=== PATIENT | female | born 1965 | race Caucasian/White ===

== ENCOUNTER 2018-07-08 22:22 | Inpatient (IN) | payer BC ==
[~2018-07-08] VITALS: Ht 172.7 cm; Wt 92.2 kg
--- NOTE | 2018-07-08 23:28 | ED.ADGEN ---
Past History Past Medical History History of left ear cholesteatoma-surgery Adult General Chief Complaint Chief Complaint ".. I ve got a headache.. sore throat.. "... fever and chills.." HPI HPI Patient is a 53 year old female who presents with above hx and complaints. Pt. did received flu vaccination this season. No hx of travel, ill contacts or immunosuppression. Pt. normally healthy. Patient does not normally developed migraine headaches. No history of trauma. Has follow up with Dr. Kothari in the past. Review of Systems Review of Systems Constitutional: Complaints of fever or chills [] Eyes: Denies change in visual acuity, redness, or eye pain [] HENT: Complaints sore throat [] Respiratory: Denies cough or shortness of breath [] Cardiovascular: No additional information not addressed in HPI [] GI: Denies abdominal pain, nausea and vomiting Musculoskeletal: Denies back pain or joint pain [] Integument: Denies rash or skin lesions [] Neurologic: Complains of intractable headache,. Denies focal weakness or sensory changes [] Endocrine: Denies polyuria or polydipsia [] All other systems were reviewed and found to be within normal limits, except as documented in this note. Family History Family History Noncontributory Current Medications Current Medications Current Medications Medications (Trade) Dose Ordered Sig/Estella Start Time Stop Time Status Last Admin Dose Admin Ceftriaxone Sodium 2 gm/ Sodium Chloride 100 ml @ 200 mls/hr 1X ONCE 07/09/18 06:00 07/09/18 06:30 DC Ceftriaxone Sodium (Rocephin) 2 gm STK-MED ONCE 07/09/18 04:32 07/09/18 04:33 DC Diphenhydramine HCl (Benadryl) 50 mg 1X ONCE 07/09/18 04:45 07/09/18 04:46 DC 07/09/18 04:45 50 MG Fentanyl Citrate (Fentanyl 2ml Vial) 75 mcg 1X ONCE 07/09/18 04:45 07/09/18 04:46 DC 07/09/18 04:39 75 MCG Hydrocodone Bitartrate/ Ibuprofen (Vicoprofen 7.5-200) 2 tab 1X ONCE 07/08/18 23:30 07/08/18 23:38 DC 07/08/18 23:36 2 TAB Lactated Ringer's 1,000 ml @ 1,000 mls/hr 1X ONCE 07/09/18 04:45 07/09/18 05:44 DC 07/09/18 04:39 1,000 MLS/HR Lidocaine/ Epinephrine (Xylocaine 2%-Epi 1:100,000) 20 ml 1X ONCE 07/09/18 03:45 07/09/18 03:47 DC 07/09/18 03:45 20 ML Morphine Sulfate (Morphine 10mg Syringe) 10 mg PRN QID PRN 07/09/18 04:45 Ondansetron HCl (Zofran) 4 mg PRN Q4HRS PRN 07/09/18 04:45 07/10/18 04:44 Prochlorperazine Edisylate (Compazine) 10 mg 1X ONCE 07/09/18 04:45 07/09/18 05:40 DC 07/09/18 04:45 10 MG Sodium Chloride 100 ml @ As Directed STK-MED ONCE 07/09/18 04:34 07/09/18 04:35 DC Vancomycin HCl 1 gm/Sodium Chloride 250 ml @ 250 mls/hr 1X ONCE 07/09/18 06:45 07/09/18 07:44 DC Allergies Allergies Allergies Coded Allergies Type Severity Reaction Last Updated Verified No Known Drug Allergies 07/08/18 No Physical Exam Physical Exam Constitutional: Moderately acute distress, non-toxic appearance. [] HENT: Normocephalic, atraumatic, abnormal left ear old surgery scars,, oropharynx moist, injected pharynx, no oral exudates, nose normal. [] Eyes: PERRLA, EOMI, conjunctiva normal, no discharge. [] Neck: Normal range of motion, no tenderness, , no stridor. [] Some guarding with flexion of neck. Cardiovascular:Heart rate regular rhythm, no murmur [] Lungs & Thorax: Bilateral breath sounds clear to auscultation [] Abdomen: Bowel sounds normal, soft, no tenderness, no masses, no pulsatile masses. [] Skin: Warm, dry, no erythema, no rash. [] Back: No tenderness, no CVA tenderness. [] Extremities: No tenderness, no cyanosis, no clubbing, ROM intact, no edema. [] Neurologic: Alert and oriented X 3, normal motor function, normal sensory function, no focal deficits noted. []DTRs +2 patella and brachial. [employer] Teacher equal. Patient is ambulatory Psychologic: Affect anxious, judgement normal, mood normal. [] Current Patient Data Vital Signs Vital Signs Date Time Temp Pulse Resp B/P (MAP) Pulse Ox O2 Delivery O2 Flow Rate FiO2 07/09/18 04:37 74 21 148/57 (87) 98 Nasal Cannula 2.0 07/08/18 22:30 98.3 Lab Results Laboratory Tests Test 07/08/18 23:40 07/09/18 00:55 07/09/18 04:15 Influenza Type A (Rapid) Negative (NEGATIVE) Influenza Type B (Rapid) Negative (NEGATIVE) Group A Streptococcus Rapid Negative (NEGATIVE) White Blood Count 12.8 x10^3/uL (4.0-11.0) H Red Blood Count 4.41 x10^6/uL (3.50-5.40) Hemoglobin 13.1 g/dL (12.0-15.5) Hematocrit 37.8 % (36.0-47.0) Mean Corpuscular Volume 86 fL (79-100) Mean Corpuscular Hemoglobin 30 pg (25-35) Mean Corpuscular Hemoglobin Concent 35 g/dL (31-37) Red Cell Distribution Width 13.9 % (11.5-14.5) Platelet Count 243 x10^3/uL (140-400) Neutrophils (%) (Auto) 90 % (31-73) H Lymphocytes (%) (Auto) 6 % (24-48) L Monocytes (%) (Auto) 4 % (0-9) Eosinophils (%) (Auto) 1 % (0-3) Basophils (%) (Auto) 0 % (0-3) Neutrophils # (Auto) 11.5 x10^3uL (1.8-7.7) H Lymphocytes # (Auto) 0.7 x10^3/uL (1.0-4.8) L Monocytes # (Auto) 0.4 x10^3/uL (0.0-1.1) Eosinophils # (Auto) 0.1 x10^3/uL (0.0-0.7) Basophils # (Auto) 0.0 x10^3/uL (0.0-0.2) Erythrocyte Sedimentation Rate 11 (0-25) Sodium Level 139 mmol/L (136-145) Potassium Level 3.9 mmol/L (3.5-5.1) Chloride Level 103 mmol/L (98-107) Carbon Dioxide Level 27 mmol/L (21-32) Anion Gap 9 (6-14) Blood Urea Nitrogen 12 mg/dL (7-20) Creatinine 0.9 mg/dL (0.6-1.0) Estimated GFR (Cockcroft-Gault) 65.5 Glucose Level 128 mg/dL (70-99) H Calcium Level 8.9 mg/dL (8.5-10.1) Total Bilirubin 0.3 mg/dL (0.2-1.0) Direct Bilirubin 0.1 mg/dL (0.0-0.2) Aspartate Amino Transferase (AST) 13 U/L (15-37) L Alanine Aminotransferase (ALT) 19 U/L (14-59) Alkaline Phosphatase 47 U/L (46-116) Total Protein 7.4 g/dL (6.4-8.2) Albumin 3.7 g/dL (3.4-5.0) CSF Volume 12.5 CSF Color Colorless CSF Clarity Cloudy CSF WBC 5600 CSF RBC 90 CSF Mononuclear WBCs % 3 % CSF Polynuclear WBCs (%) 97 % CSF Glucose 41 mg/dL (37-70) CSF Total Protein 173.9 mg/dL (15.0-45.0) H Microbiology 07/09/18 Gram Stain - Final, Complete Microbiology 07/09/18 Gram Stain - Final, Complete EKG EKG [] Radiology/Procedures Radiology/Procedures My interpretation CT of head shows no shift, mass, edema, bleed, or fracture. Does have some white matter disease changes. Does have findings of previous cholesteatoma surgery on left ear. Possible mastoiditis[] Course & Med Decision Making Course & Med Decision Making Pertinent Labs and Imaging studies reviewed. (See chart for details) Pt. not feeling better after two Vicoprofen. Strept and Flu were negative. Will order labs and CT of head. 0040 Hr.s Procedure: Spinal Tap- Risks and Benefits discussed. Customs Verifier. Lumbar L-4 prepped with Sterile drape, 3 cc lidocaine, and 23 g. needle with removal 4 tubes of CSF , that was cloudy. Pt. tolerated tap well. Opening pressure 35 with 2 ml pleural variation. Will start on antibiotic due to cloudy appearance. Place pt. on isolation. Discussed presentation, testing and tx. plan with Dr. Keene- [] Final Impression Final Impression 1. [] Head ache 2. Leukocytosis 12.8 3. Meningitis- CSF WBC 5,600, PM's Protein 173 Dragon Disclaimer Dragon Disclaimer This electronic medical record was generated, in whole or in part, using a voice recognition dictation system. Discharge Summary Visit Information Final Diagnosis Problems Medical Problems: (1) Headache Status: Acute Brief Hospital Course Allergies Allergies Coded Allergies Type Severity Reaction Last Updated Verified No Known Drug Allergies 07/08/18 No Vital Signs Vital Signs Date Time Temp Pulse Resp B/P (MAP) Pulse Ox O2 Delivery O2 Flow Rate FiO2 07/09/18 04:37 74 21 148/57 (87) 98 Nasal Cannula 2.0 07/08/18 22:30 98.3 Lab Results Laboratory Tests Test 07/08/18 23:40 07/09/18 00:55 07/09/18 04:15 Influenza Type A (Rapid) Negative (NEGATIVE) Influenza Type B (Rapid) Negative (NEGATIVE) Group A Streptococcus Rapid Negative (NEGATIVE) White Blood Count 12.8 x10^3/uL (4.0-11.0) Red Blood Count 4.41 x10^6/uL (3.50-5.40) Hemoglobin 13.1 g/dL (12.0-15.5) Hematocrit 37.8 % (36.0-47.0) Mean Corpuscular Volume 86 fL (79-100) Mean Corpuscular Hemoglobin 30 pg (25-35) Mean Corpuscular Hemoglobin Concent 35 g/dL (31-37) Red Cell Distribution Width 13.9 % (11.5-14.5) Platelet Count 243 x10^3/uL (140-400) Neutrophils (%) (Auto) 90 % (31-73) Lymphocytes (%) (Auto) 6 % (24-48) Monocytes (%) (Auto) 4 % (0-9) Eosinophils (%) (Auto) 1 % (0-3) Basophils (%) (Auto) 0 % (0-3) Neutrophils # (Auto) 11.5 x10^3uL (1.8-7.7) Lymphocytes # (Auto) 0.7 x10^3/uL (1.0-4.8) Monocytes # (Auto) 0.4 x10^3/uL (0.0-1.1) Eosinophils # (Auto) 0.1 x10^3/uL (0.0-0.7) Basophils # (Auto) 0.0 x10^3/uL (0.0-0.2) Erythrocyte Sedimentation Rate 11 (0-25) Sodium Level 139 mmol/L (136-145) Potassium Level 3.9 mmol/L (3.5-5.1) Chloride Level 103 mmol/L (98-107) Carbon Dioxide Level 27 mmol/L (21-32) Anion Gap 9 (6-14) Blood Urea Nitrogen 12 mg/dL (7-20) Creatinine 0.9 mg/dL (0.6-1.0) Estimated GFR (Cockcroft-Gault) 65.5 Glucose Level 128 mg/dL (70-99) Calcium Level 8.9 mg/dL (8.5-10.1) Total Bilirubin 0.3 mg/dL (0.2-1.0) Direct Bilirubin 0.1 mg/dL (0.0-0.2) Aspartate Amino Transf (AST/SGOT) 13 U/L (15-37) Alanine Aminotransferase (ALT/SGPT) 19 U/L (14-59) Alkaline Phosphatase 47 U/L (46-116) Total Protein 7.4 g/dL (6.4-8.2) Albumin 3.7 g/dL (3.4-5.0) CSF Volume 12.5 CSF Color Colorless CSF Clarity Cloudy CSF WBC 5600 CSF RBC 90 CSF Mononuclear WBCs % 3 % CSF Polynuclear WBCs (%) 97 % CSF Glucose 41 mg/dL (37-70) CSF Total Protein 173.9 mg/dL (15.0-45.0) Brief Hospital Course Ms. Villalba is a 53 old male who presented with headache and nasal congestion. Discharge Information Condition at Discharge: Improved Disposition/Orders: D/C to Home Dischare Medications Current Medications Hydrocodone Bitartrate/ Ibuprofen (Vicoprofen 7.5-200) 2 tab 1X ONCE PO Last administered on 07/08/18at 23:36; Admin Dose 2 TAB; Start 07/08/18 at 23:30; Stop 07/08/18 at 23:38; Status DC Lactated Ringer's 1,000 ml @ 1,000 mls/hr Q1H IV Last administered on at 01:08; Admin Dose 1,000 MLS/HR; Start 07/09/18 at 00:45; Stop 07/09/18 at 01:44; Status DC Ondansetron HCl (Zofran) 8 mg 1X ONCE IV Last administered on 07/09/18at 01:38 ; Admin Dose 8 MG; Start 07/09/18 at 01:45; Stop 07/09/18 at 01:48; Status DC Fentanyl Citrate (Fentanyl 2ml Vial) 75 mcg 1X ONCE IV Last administered on at 01:39; Admin Dose 75 MCG; Start 07/09/18 at 01:45; Stop 07/09/18 at 01: 48; Status DC Ondansetron HCl (Zofran) 8 mg 1X ONCE IV ; Start 07/09/18 at 01:45; Stop at 01:48; Status DC Fentanyl Citrate (Fentanyl 2ml Vial) 75 mcg 1X ONCE IV ; Start 07/09/18 at 01: 45; Stop 07/09/18 at 01:48; Status DC Fentanyl Citrate (Fentanyl 2ml Vial) 75 mcg 1X ONCE IV Last administered on at 03:45; Admin Dose 75 MCG; Start 07/09/18 at 03:45; Stop 07/09/18 at 03: 47; Status DC Lidocaine/ Epinephrine (Xylocaine 2%-Epi 1:100,000) 20 ml 1X ONCE IJ Last administered on 07/09/18at 03:45; Admin Dose 20 ML; Start 07/09/18 at 03:45; Stop 07/09/18 at 03:47; Status DC Ceftriaxone Sodium 2 gm/ Sodium Chloride 100 ml @ 200 mls/hr 1X ONCE IV Last administered on 07/09/18at 04:39; Admin Dose 200 MLS/HR; Start 07/09/18 at 04:45 ; Stop 07/09/18 at 05:14; Status DC Fentanyl Citrate (Fentanyl 2ml Vial) 75 mcg 1X ONCE IV Last administered on at 04:39; Admin Dose 75 MCG; Start 07/09/18 at 04:45; Stop 07/09/18 at 04: 46; Status DC Morphine Sulfate (Morphine 10mg Syringe) 10 mg 1X ONCE SQ ; Start 07/09/18 at 04:45; Stop 07/09/18 at 04:46; Status DC Diphenhydramine HCl (Benadryl) 50 mg 1X ONCE IVP Last administered on at 04:45; Admin Dose 50 MG; Start 07/09/18 at 04:45; Stop 07/09/18 at 04:46; Status DC Prochlorperazine Edisylate (Compazine) 10 mg 1X ONCE IM ; Start 07/09/18 at 04: 45; Stop 07/09/18 at 04:46; Status DC Lactated Ringer's 1,000 ml @ 1,000 mls/hr 1X ONCE IV Last administered on at 04:39; Admin Dose 1,000 MLS/HR; Start 07/09/18 at 04:45; Stop 07/09/18 at 05:44; Status DC Ceftriaxone Sodium (Rocephin) 2 gm STK-MED ONCE IV ; Start 07/09/18 at 04:32; Stop 07/09/18 at 04:33; Status DC Sodium Chloride 100 ml @ As Directed STK-MED ONCE .ROUTE ; Start 07/09/18 at 04 :34; Stop 07/09/18 at 04:35; Status DC Ondansetron HCl (Zofran) 4 mg PRN Q4HRS PRN IV NAUSEA/VOMITING; Start 07/09/18 at 04:45; Stop 07/10/18 at 04:44 Morphine Sulfate (Morphine 10mg Syringe) 10 mg PRN QID PRN SQ MARKED PAIN; Start 07/09/18 at 04:45 Ceftriaxone Sodium 2 gm/ Sodium Chloride 100 ml @ 200 mls/hr 1X ONCE IV ; Start 07/09/18 at 06:00; Stop 07/09/18 at 06:30; Status DC Prochlorperazine Edisylate (Compazine) 10 mg 1X ONCE IV Last administered on at 04:45; Admin Dose 10 MG; Start 07/09/18 at 04:45; Stop 07/09/18 at 05: 40; Status DC Vancomycin HCl 1 gm/Sodium Chloride 250 ml @ 250 mls/hr 1X ONCE IV ; Start at 06:45; Stop 07/09/18 at 07:44; Status DC Discharge Summary Visit Information Final Diagnosis Problems Medical Problems: (1) Headache Status: Acute Brief Hospital Course Allergies Allergies Coded Allergies Type Severity Reaction Last Updated Verified No Known Drug Allergies 07/08/18 No Vital Signs Vital Signs Date Time Temp Pulse Resp B/P (MAP) Pulse Ox O2 Delivery O2 Flow Rate FiO2 07/09/18 04:37 74 21 148/57 (87) 98 Nasal Cannula 2.0 07/08/18 22:30 98.3 Lab Results Laboratory Tests Test 07/08/18 23:40 07/09/18 00:55 07/09/18 04:15 Influenza Type A (Rapid) Negative (NEGATIVE) Influenza Type B (Rapid) Negative (NEGATIVE) Group A Streptococcus Rapid Negative (NEGATIVE) White Blood Count 12.8 x10^3/uL (4.0-11.0) Red Blood Count 4.41 x10^6/uL (3.50-5.40) Hemoglobin 13.1 g/dL (12.0-15.5) Hematocrit 37.8 % (36.0-47.0) Mean Corpuscular Volume 86 fL (79-100) Mean Corpuscular Hemoglobin 30 pg (25-35) Mean Corpuscular Hemoglobin Concent 35 g/dL (31-37) Red Cell Distribution Width 13.9 % (11.5-14.5) Platelet Count 243 x10^3/uL (140-400) Neutrophils (%) (Auto) 90 % (31-73) Lymphocytes (%) (Auto) 6 % (24-48) Monocytes (%) (Auto) 4 % (0-9) Eosinophils (%) (Auto) 1 % (0-3) Basophils (%) (Auto) 0 % (0-3) Neutrophils # (Auto) 11.5 x10^3uL (1.8-7.7) Lymphocytes # (Auto) 0.7 x10^3/uL (1.0-4.8) Monocytes # (Auto) 0.4 x10^3/uL (0.0-1.1) Eosinophils # (Auto) 0.1 x10^3/uL (0.0-0.7) Basophils # (Auto) 0.0 x10^3/uL (0.0-0.2) Erythrocyte Sedimentation Rate 11 (0-25) Sodium Level 139 mmol/L (136-145) Potassium Level 3.9 mmol/L (3.5-5.1) Chloride Level 103 mmol/L (98-107) Carbon Dioxide Level 27 mmol/L (21-32) Anion Gap 9 (6-14) Blood Urea Nitrogen 12 mg/dL (7-20) Creatinine 0.9 mg/dL (0.6-1.0) Estimated GFR (Cockcroft-Gault) 65.5 Glucose Level 128 mg/dL (70-99) Calcium Level 8.9 mg/dL (8.5-10.1) Total Bilirubin 0.3 mg/dL (0.2-1.0) Direct Bilirubin 0.1 mg/dL (0.0-0.2) Aspartate Amino Transf (AST/SGOT) 13 U/L (15-37) Alanine Aminotransferase (ALT/SGPT) 19 U/L (14-59) Alkaline Phosphatase 47 U/L (46-116) Total Protein 7.4 g/dL (6.4-8.2) Albumin 3.7 g/dL (3.4-5.0) CSF Volume 12.5 CSF Color Colorless CSF Clarity Cloudy CSF WBC 5600 CSF RBC 90 CSF Mononuclear WBCs % 3 % CSF Polynuclear WBCs (%) 97 % CSF Glucose 41 mg/dL (37-70) CSF Total Protein 173.9 mg/dL (15.0-45.0) Brief Hospital Course Ms. Villalba is a 53 old female who presented with meningitis. Admitted to Dr. Keene. Discharge Information Condition at Discharge: Improved Dischare Medications Current Medications Hydrocodone Bitartrate/ Ibuprofen (Vicoprofen 7.5-200) 2 tab 1X ONCE PO Last administered on 07/08/18at 23:36; Admin Dose 2 TAB; Start 07/08/18 at 23:30; Stop 07/08/18 at 23:38; Status DC Lactated Ringer's 1,000 ml @ 1,000 mls/hr Q1H IV Last administered on at 01:08; Admin Dose 1,000 MLS/HR; Start 07/09/18 at 00:45; Stop 07/09/18 at 01:44; Status DC Ondansetron HCl (Zofran) 8 mg 1X ONCE IV Last administered on 07/09/18at 01:38 ; Admin Dose 8 MG; Start 07/09/18 at 01:45; Stop 07/09/18 at 01:48; Status DC Fentanyl Citrate (Fentanyl 2ml Vial) 75 mcg 1X ONCE IV Last administered on at 01:39; Admin Dose 75 MCG; Start 07/09/18 at 01:45; Stop 07/09/18 at 01: 48; Status DC Ondansetron HCl (Zofran) 8 mg 1X ONCE IV ; Start 07/09/18 at 01:45; Stop at 01:48; Status DC Fentanyl Citrate (Fentanyl 2ml Vial) 75 mcg 1X ONCE IV ; Start 07/09/18 at 01: 45; Stop 07/09/18 at 01:48; Status DC Fentanyl Citrate (Fentanyl 2ml Vial) 75 mcg 1X ONCE IV Last administered on at 03:45; Admin Dose 75 MCG; Start 07/09/18 at 03:45; Stop 07/09/18 at 03: 47; Status DC Lidocaine/ Epinephrine (Xylocaine 2%-Epi 1:100,000) 20 ml 1X ONCE IJ Last administered on 07/09/18at 03:45; Admin Dose 20 ML; Start 07/09/18 at 03:45; Stop 07/09/18 at 03:47; Status DC Ceftriaxone Sodium 2 gm/ Sodium Chloride 100 ml @ 200 mls/hr 1X ONCE IV Last administered on 07/09/18at 04:39; Admin Dose 200 MLS/HR; Start 07/09/18 at 04:45 ; Stop 07/09/18 at 05:14; Status DC Fentanyl Citrate (Fentanyl 2ml Vial) 75 mcg 1X ONCE IV Last administered on at 04:39; Admin Dose 75 MCG; Start 07/09/18 at 04:45; Stop 07/09/18 at 04: 46; Status DC Morphine Sulfate (Morphine 10mg Syringe) 10 mg 1X ONCE SQ ; Start 07/09/18 at 04:45; Stop 07/09/18 at 04:46; Status DC Diphenhydramine HCl (Benadryl) 50 mg 1X ONCE IVP Last administered on at 04:45; Admin Dose 50 MG; Start 07/09/18 at 04:45; Stop 07/09/18 at 04:46; Status DC Prochlorperazine Edisylate (Compazine) 10 mg 1X ONCE IM ; Start 07/09/18 at 04: 45; Stop 07/09/18 at 04:46; Status DC Lactated Ringer's 1,000 ml @ 1,000 mls/hr 1X ONCE IV Last administered on at 04:39; Admin Dose 1,000 MLS/HR; Start 07/09/18 at 04:45; Stop 07/09/18 at 05:44; Status DC Ceftriaxone Sodium (Rocephin) 2 gm STK-MED ONCE IV ; Start 07/09/18 at 04:32; Stop 07/09/18 at 04:33; Status DC Sodium Chloride 100 ml @ As Directed STK-MED ONCE .ROUTE ; Start 07/09/18 at 04 :34; Stop 07/09/18 at 04:35; Status DC Ondansetron HCl (Zofran) 4 mg PRN Q4HRS PRN IV NAUSEA/VOMITING; Start 07/09/18 at 04:45; Stop 07/10/18 at 04:44 Morphine Sulfate (Morphine 10mg Syringe) 10 mg PRN QID PRN SQ MARKED PAIN; Start 07/09/18 at 04:45 Ceftriaxone Sodium 2 gm/ Sodium Chloride 100 ml @ 200 mls/hr 1X ONCE IV ; Start 07/09/18 at 06:00; Stop 07/09/18 at 06:30; Status DC Prochlorperazine Edisylate (Compazine) 10 mg 1X ONCE IV Last administered on at 04:45; Admin Dose 10 MG; Start 07/09/18 at 04:45; Stop 07/09/18 at 05: 40; Status DC Vancomycin HCl 1 gm/Sodium Chloride 250 ml @ 250 mls/hr 1X ONCE IV ; Start at 06:45; Stop 07/09/18 at 07:44; Status DC Dragon Disclaimer This chart was dictated in whole or in part using Voice Recognition software in a busy, high-work load, and often noisy Emergency Department environment. It may contain unintended and wholly unrecognized errors or omissions. Dragon Disclaimer This chart was dictated in whole or in part using Voice Recognition software in a busy, high-work load, and often noisy Emergency Department environment. It may contain unintended and wholly unrecognized errors or omissions. DIEGO JOHNSTON MD Jul 08, 2018 23:28
[2018-07-08] MEDS ORDERED: HYDROcodon/IBUPROFEN 7.5/200MG 1 TAB TABLET PO ONE (23:30)
[2018-07-09 00:21] LABS: INFLUENZA A PATIENT NEGATIVE (NEGATIVE); INFLUENZA B PATIENT NEGATIVE (NEGATIVE)
[2018-07-09] MEDS ORDERED: IV RINGERS SOLUTION,LACTATED 1,000 ML IV SCH ×2 (00:45→10:30)
[2018-07-09 01:15] LABS: BASO % 0 % (0-3); EOS # 0.1 x10^3/uL (0.0-0.7); EOS % 1 % (0-3); HEMATOCRIT 37.8 % (36.0-47.0); HEMOGLOBIN 13.1 g/dL (12.0-15.5); LYMPH # 0.7 x10^3/uL (1.0-4.8); LYMPH % 6 % (24-48); MEAN CORPUSCULAR HEMOGLOBIN 30 pg (25-35); MEAN CORPUSCULAR HGB CONC 35 g/dL (31-37); MEAN CORPUSCULAR VOLUME 86 fL (79-100); MONO # 0.4 x10^3/uL (0.0-1.1); MONO % 4 % (0-9); NEUT # 11.5 x10^3uL (1.8-7.7); NEUT % 90 % (31-73); PLATELET COUNT 243 x10^3/uL (140-400); RED BLOOD COUNT 4.41 x10^6/uL (3.50-5.40); RED CELL DISTRIBUTION WIDTH 13.9 % (11.5-14.5); WHITE BLOOD COUNT 12.8 x10^3/uL (4.0-11.0)
--- NOTE | 2018-07-09 01:28 | RAD ---
INDICATION: Severe headache COMPARISON: None. TECHNIQUE: Axial CT images obtained through the head without intravenous contrast. One or more of the following individualized dose reduction techniques were utilized for this examination: 1. Automated exposure control; 2. Adjustment of the mA and/or kV according to patient size; 3. Use of iterative reconstruction technique. FINDINGS: No intracranial hemorrhage. No midline shift. Basal cisterns patent. Ventricles and sulci are unremarkable. No acute osseous abnormality. Orbits and paranasal sinuses unremarkable. IMPRESSION: 1. No acute intracranial hemorrhage. 2. Scattered foci of low density of white matter. Nonspecific but can be seen with sequela of chronic small vessel ischemic disease. Other possible causes include sequela of migraine. 3. Either postoperative changes or auto mastoidectomy changes left mastoid air cells. Opacification of a portion of the remaining left mastoid air cells. Could be from congestion unless there are symptoms of mastoiditis. Electronically signed by: Jl Spicer MD (07/09/2018 1:25 AM) [id number]
[2018-07-09 01:30] LABS: ALBUMIN 3.7 g/dL (3.4-5.0); CALCIUM 8.9 mg/dL (8.5-10.1); CREATININE 0.9 mg/dL (0.6-1.0); DIRECT BILIRUBIN 0.1 mg/dL (0.0-0.2); GFR 65.5; POTASSIUM 3.9 mmol/L (3.5-5.1); TOTAL BILIRUBIN 0.3 mg/dL (0.2-1.0); TOTAL PROTEIN 7.4 g/dL (6.4-8.2)
[2018-07-09] MEDS ORDERED: ONDANSETRON PF 4 MG/2 ML VIAL. IV ONE ×2 (01:45)
[2018-07-09 02:35] LABS: SEDIMENTATION RATE 11 (0-25)
[2018-07-09] MEDS ORDERED: LIDOCAINE 2%/EPI 1:100,000 20 ML VIAL. IJ ONE (03:45)
[2018-07-09] MEDS ORDERED: IV NORMAL SALINE 100ML 100 ML ONE (04:34)
[2018-07-09] MEDS ORDERED: MORPHINE SULFATE 10 MG/ML SYRINGE. SQ ONE (04:45)
[2018-07-09] MEDS ORDERED: diphenhydrAMINE 50 MG/ML VIAL IVP ONE (04:45)
[2018-07-09] MEDS ORDERED: IV RINGERS SOLUTION,LACTATED 1,000 ML IV ONE (04:45)
[2018-07-09] MEDS ORDERED: PROCHLORPERAZINE 10 MG/2 ML VIAL. IM ONE (04:45)
[2018-07-09] MEDS ORDERED: ONDANSETRON PF 4 MG/2 ML VIAL. IV PRN (04:45)
[2018-07-09] MEDS ORDERED: PROCHLORPERAZINE 10 MG/2 ML VIAL. IV ONE (04:45)
[2018-07-09] MEDS ORDERED: MORPHINE SULFATE 10 MG/ML SYRINGE. SQ PRN (04:45)
[2018-07-09 05:11] LABS: CSF PROTEIN 173.9 mg/dL (15.0-45.0)
[2018-07-09 06:40] LABS: CSF COLOR COLORLESS
[2018-07-09 06:41] LABS: CSF CLARITY CLOUDY; CSF RBC COUNT 90; CSF WBC COUNT 5600
[2018-07-09 06:42] LABS: CSF MON % 3 %; CSF PMN % 97 %
[2018-07-09] MEDS ORDERED: VANCOMYCIN 1 GM in IV NORMAL SALINE 250ML 250 ML IV ONE ×2 (06:45→14:30)
[2018-07-09 08:22] VITALS: BP 128/76
[2018-07-09 10:27] VITALS: BP 122/72
[2018-07-09] MEDS ORDERED: MORPHINE SULFATE 4 MG/ML DISP.SYRIN. IV PRN (10:30)
[2018-07-09] MEDS ORDERED: VANCOMYCIN PER PHARMACY MC PRN ×2 (13:30→13:45)
[2018-07-09] MEDS ORDERED: VANCOMYCIN 2 GM in IV NORMAL SALINE 500ML 500 ML IV ONE ×2 (14:00→14:30)
[2018-07-09] MEDS ORDERED: VANCOMYCIN 1.5 GM in IV NORMAL SALINE 500ML 500 ML IV SCH (14:30)
--- NOTE | 2018-07-09 15:04 | HP ---
ADMIT DATE: 07/09/2018 HISTORY OF PRESENT ILLNESS: The patient is a 53-year-old female patient, who came to the Emergency Room with a complaint of headache, sore throat, fevers and chills. She apparently did receive her flu vaccine this season. She has no history of travel or immunosuppression. However, her son has had what seemed to be flu-like illness and then she has developed a flu-like illness with a runny nose, cough and sore throat for about 4 days and yesterday, she developed headache, nausea, vomiting, fever, feeling hot and cold. There is no history of trauma. She was evaluated in the Emergency Room and underwent lumbar puncture, which basically showed that her CSF white cell count was 5600, which 97% polymorphonuclear leukocytes and 3% mononuclear leukocytes. Her CSF glucose was low at 41 and CSF total protein was 174 mg/dL. She was admitted and started on IV Rocephin and vancomycin together with antiemetic pain medication as well as Tylenol. When I saw her, she continued to be lethargic, but arousable, answers questions appropriately. 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 PAST SURGICAL HISTORY: Significant for two C-sections and cholesteatoma resection x 3. ALLERGIES: She has no known drug allergies. MEDICATIONS: She is only on fish oil and multivitamin tablets. FAMILY HISTORY: She has one sister, who has a blood cancer. Her other sister is healthy, has 2 brothers, who are alive and apparently healthy. Her father in his 60s because of myocardial infarction. Mother is still alive at the age of 81, known to have hypertension. TRAVEL HISTORY: The patient ____ been outside of [facility]. SOCIAL HISTORY: She is . She has an 18-year-old daughter and 14-year-old son. She has never smoked, does not drink alcohol or use any recreational drugs. She is a [id number] mom. REVIEW OF SYSTEMS: The patient denied any blurring of vision, cataract, glaucoma or macular degeneration. Denied any earache, tinnitus or sensorineural deafness. She did complain of stuffy nose, but denied any nosebleeds. She does have sore throat. She did complain of nausea and vomiting. Denied any diarrhea or constipation. Denied any hematemesis, melena or hematochezia. Denied any dysuria, frequency or hematuria. Denied any chest pain or shortness of breath. Denied any cough, phlegm or hemoptysis. PHYSICAL EXAMINATION: GENERAL: On arrival to the Emergency Room, the patient was resting slightly propped up in bed, in no apparent respiratory distress. She was lethargic, but arousable. There is no pallor, jaundice, cyanosis, or thyromegaly. No jugular venous distension. No limb edema. VITAL SIGNS: Her heart rate was 63, blood pressure was 132/74, temperature was 98.3, respiratory rate was 18, and oxygen saturation 100% on room air. HEAD, EYES, EARS, NOSE AND THROAT: Showed normocephalic, atraumatic. NECK: Supple. HEART: Showed normal first and second heart sounds. No gallop, rub or murmur. CHEST: Clear to auscultation. No crepitation or rhonchi. ABDOMEN: Distended, soft, nontender. NEUROLOGIC: She is lethargic, but arousable to answer questions appropriately. All her cranial nerves intact. EXTREMITIES: She moves extremities without difficulty. LABORATORY DATA: Her lab work on admission showed that her white cell count was slightly high at 12,800, hemoglobin 13, hematocrit 39, MCV 86 and platelet count of 243,000. Her chemistry showed a serum sodium 139, potassium 3.9, chloride 103, bicarbonate 27, anion gap of 9, BUN 12, creatinine was 0.9, estimated GFR was 65 mL per minute. Her glucose was 128, calcium was 8.9. Total bilirubin, AST, ALT, alkaline phosphatase were normal. Total protein was 7.4, albumin 3.7. Her influenza A and B were negative. Group A Streptococcus was negative. Her CSF was colorless, cloudy. There was 5600 WBCs, 90 RBCs, the cell differential showed 97% polymorphonuclear leukocytes, 3% mononuclear leukocytes. Her CSF glucose was 41 and CSF total protein was 173.9 mg/dL. She did have a CT scan of the head, which showed that the patient has no intracranial hemorrhage, no midline shift. Basal cisterns are patent. Ventricles and sulci are unremarkable. No acute osseous abnormality. Orbits and paranasal sinuses are unremarkable. The patient has also scattered foci of low density white matter, nonspecific, but can be seen as a sequelae of chronic small vessel ischemic disease. Other possible cause include sequela of migraine either postoperative changes or to mastoidectomy changes, left mastoid air cells; opacification of portion with the remaining left mastoid air cells could be from congestion and less symptoms of mastoiditis. PLAN: To continue with IV vancomycin and IV Rocephin and will follow her closely and decide the further management accordingly. GARY HENRY MD DR: KRYSTIAN/william JOB#: [id number] / [id number]
[2018-07-10] MEDS ORDERED: VANCOMYCIN 1.5 GM in IV NORMAL SALINE 500ML 500 ML IV SCH (02:30)
[2018-07-18 07:09] LABS: VIRAL CULT FINAL No virus isolated. (.)
== END 2018-07-09 15:35 | disposition short-term general hospital (02) | DRG 871 ==
LOC: ER 22:22 → 1 SOUTH 07-09 07:14
PROVIDERS: ADMIT Internal Medicine; ATTEND Internal Medicine
PROC: 009U3ZX Drainage of Spinal Canal, Percutaneous Approach, Diagnostic (ICD-10-PCS; principal; 2018-07-09)
DX: A41.9 Sepsis, unspecified organism (principal); G03.9 Meningitis, unspecified; Z82.49 Family history of ischemic heart disease and other diseases of the circulatory system; D72.829 Elevated white blood cell count, unspecified
CPT/HCPCS: 36415; 62270; 70450; 80048; 80076; 82945; 84157; 85025; 85651; 86592; 87070; 87071; 87075; 87252; 87327; 87449; 87804; 87880; 89051; 96361; 96365; 96366; 96375; 96376; J0696; J0780; J1200; J2270; J2405; J3010; J3370; J7040; J7120; 99285-25

== ENCOUNTER → 2018-07-24 | Outpatient (CLI) | payer BC ==
[2018-07-09 10:27] VITALS: BP 122/72
[2018-07-24 15:14] LABS: BASO # 0.1 x10^3/uL (0.0-0.2); BASO % 1 % (0-3); EOS # 0.2 x10^3/uL (0.0-0.7); EOS % 3 % (0-3); HEMATOCRIT 36.4 % (36.0-47.0); HEMOGLOBIN 12.6 g/dL (12.0-15.5); LYMPH # 1.7 x10^3/uL (1.0-4.8); LYMPH % 21 % (24-48); MEAN CORPUSCULAR HEMOGLOBIN 30 pg (25-35); MEAN CORPUSCULAR HGB CONC 35 g/dL (31-37); MEAN CORPUSCULAR VOLUME 86 fL (79-100); MONO # 0.3 x10^3/uL (0.0-1.1); MONO % 4 % (0-9); NEUT # 5.7 x10^3uL (1.8-7.7); NEUT % 71 % (31-73); PLATELET COUNT 295 x10^3/uL (140-400); RED BLOOD COUNT 4.24 x10^6/uL (3.50-5.40)
[2018-07-24 15:16] LABS: ALBUMIN 3.6 g/dL (3.4-5.0); ALBUMIN/GLOBULIN RATIO 0.9 (1.0-1.7); CALCIUM 9.2 mg/dL (8.5-10.1); TOTAL PROTEIN 7.4 g/dL (6.4-8.2)
[2018-07-24 15:17] LABS: CREATININE 0.9 mg/dL (0.6-1.0); GFR 65.5; POTASSIUM 3.7 mmol/L (3.5-5.1); TOTAL BILIRUBIN 0.3 mg/dL (0.2-1.0)
== END | disposition home or self-care (01) ==
LOC: SPEC 14:31
PROVIDERS: ATTEND Specialist
DX: Z45.2 Encounter for adjustment and management of vascular access device (principal); G00.9 Bacterial meningitis, unspecified; E66.9 Obesity, unspecified; Z79.2 Long term (current) use of antibiotics
CPT/HCPCS: 36415; 80053; 85025

== ENCOUNTER → 2018-07-31 | Outpatient (CLI) | payer BC ==
[2018-07-09 10:27] VITALS: BP 122/72
[2018-07-31 12:14] LABS: BASO # 0.1 x10^3/uL (0.0-0.2); BASO % 1 % (0-3); EOS # 0.2 x10^3/uL (0.0-0.7); EOS % 3 % (0-3); HEMATOCRIT 37.1 % (36.0-47.0); HEMOGLOBIN 12.7 g/dL (12.0-15.5); LYMPH # 1.2 x10^3/uL (1.0-4.8); LYMPH % 19 % (24-48); MEAN CORPUSCULAR HEMOGLOBIN 30 pg (25-35); MEAN CORPUSCULAR HGB CONC 34 g/dL (31-37); MEAN CORPUSCULAR VOLUME 86 fL (79-100); MONO # 0.2 x10^3/uL (0.0-1.1); MONO % 4 % (0-9); NEUT # 4.8 x10^3uL (1.8-7.7); NEUT % 74 % (31-73); PLATELET COUNT 239 x10^3/uL (140-400); RED CELL DISTRIBUTION WIDTH 13.9 % (11.5-14.5); WHITE BLOOD COUNT 6.6 x10^3/uL (4.0-11.0)
[2018-07-31 12:24] LABS: ALBUMIN 3.8 g/dL (3.4-5.0); CALCIUM 9.5 mg/dL (8.5-10.1); CREATININE 0.9 mg/dL (0.6-1.0); GFR 65.5; POTASSIUM 3.6 mmol/L (3.5-5.1); TOTAL BILIRUBIN 0.3 mg/dL (0.2-1.0); TOTAL PROTEIN 7.8 g/dL (6.4-8.2)
== END | disposition home or self-care (01) ==
LOC: SPEC 12:04
PROVIDERS: ATTEND Specialist
DX: Z45.2 Encounter for adjustment and management of vascular access device (principal); G00.9 Bacterial meningitis, unspecified; E66.9 Obesity, unspecified; Z79.2 Long term (current) use of antibiotics
CPT/HCPCS: 36415; 80053; 85025